=== PATIENT | female | born 1965 | race Caucasian/White ===

== ENCOUNTER 2016-09-11 11:15 | Emergency (ER) | payer OTHER ==
[~2016-09-11] VITALS: Ht 172.7 cm; Wt 59.0 kg
[2016-09-11 13:37] VITALS: BP 134/82
== END 2016-09-11 13:36 | disposition home or self-care (01) ==
LOC: ED 11:15
DX: S00.83XA Contusion of other part of head, initial encounter (principal); N64.4 Mastodynia; E78.00 Pure hypercholesterolemia, unspecified; F79 Unspecified intellectual disabilities; W01.0XXA Fall on same level from slipping, tripping and stumbling without subsequent striking against object, initial encounter; Y93.89 Activity, other specified; Y99.8 Other external cause status; Y92.89 Other specified places as the place of occurrence of the external cause